=== PATIENT | male | born 1995 | race Caucasian/White ===

== ENCOUNTER 2024-12-18 18:53 | Emergency (ER) | payer OTHER, SELFPAY ==
[2024-12-18 19:01] VITALS: BP 122/70
[2024-12-18 19:59] LABS: % Basophils 0.8 % (0-2); % Immature Granulocytes 0.4 % (0-0.5); % Lymphocytes 6.8 % (20.5-51.1); % Monocytes 5.8 % (1.7-9.3); % Neutrophils 86.2 % (42.2-75.2); Absolute Lymphocytes 0.3 10^3/uL (1.2-3.4); Absolute Monocytes 0.3 10^3/uL (0.1-0.6); Absolute Neutrophils 4.2 10^3/uL (1.4-6.5); Hematocrit 42.4 % (39.0-52.0); Hemoglobin 15.1 g/dL (13.0-18.0); Mean Corp Hgb Conc. 35.6 g/dL (33.0-37.0); Mean Corpuscular Hgb 31.9 pg (27.0-31.0); Mean Corpuscular Volume 89.5 fL (80.0-94.0); Mean Platelet Volume 9.2 fL (7.4-10.4); Nucleated Red Blood Cells % 0 % (-); Platelet Count 152 10^3/uL (130-400); Red Blood Cell Count 4.74 10^6/uL (4.70-6.10); Red Cell Dist. Width 12.2 % (11.5-14.5); White Blood Cell Count 4.8 10^3/uL (4.8-10.8)
[2024-12-18 20:09] LABS: Erythrocyte Sed Rate 4 mm/hour (0-20)
[2024-12-18 20:24] LABS: ALT (SGPT) 118 U/L (0-50); AST (SGOT) 115 U/L (17-59); Albumin 4.1 g/dl (3.5-5.0); Alkaline Phosphatase 64 U/L (38-126); Blood Urea Nitrogen 7 mg/dl (9-20); Calcium 9.4 mg/dl (8.4-10.2); Carbon Dioxide 25 mmol/L (22-30); Chloride 107 mmol/L (98-107); Glucose 153 mg/dl (70-99); Potassium 3.7 mmol/L (3.5-5.1); Sodium 138 mmol/L (135-145); Total Bilirubin 0.5 mg/dl (0.2-1.3); Total Protein 6.6 g/dl (6.3-8.2); eGFR > 60.00
--- NOTE | 2024-12-18 22:03 | ED.SKININJ ---
HPI-Injury
General
Chief Complaint: Bite
Source: patient
Exam Limitations: none
Time Seen by Provider: 12/18/24 19:31
Nursing documentation reviewed up to this point in time: agreed with
History of Present Illness-Injury
Is this injury a work related problem?: No
Is pt an associate of [facility]?: No
Initial Injury comments:
Patient to ED for eval of skin rash to right posterior shoulder. He reports removing a small tick from site a few weeks ago. This past week he noticed rash, developed body aches. He was evaluated at yesterday and diagnosed with suspected lyme
disease. Placed on Doxycycline 100mg bid x 28 days. He has had 3 doses and reports his symptoms are unchanged. Feels that the rash on his shoulder is expanding. To ED accompanied by spouse for eval.
Past History
Past History
ED Past Medical History: None
ED Past Surgical History: None
Review of Systems
Review of Systems
Allergies reviewed?: Yes
All Other Systems: ROS reviewed and negative except as documented in HPI and ROS
Constitutional: Reports fatigue
EENT: Reports no symptoms
Respiratory: Reports no symptoms
Cardiac: Reports no symptoms
ABD/GI: Reports no symptoms
: Reports no symptoms
Musculoskeletal: Reports other (generalized body aches)
Skin: Reports other (EM rash to right posterior shoulder)
Neurological: Reports no symptoms
Psychiatric: Reports no symptoms
Phy Exam
General Physical Exam
General Presentation: mild distress
General age: appears stated age
General Skin: warm and dry
General Habitus: normal
General Mental: alert
Cardiovascular Exam
Cardiovascular Exam: regular rate/rhythm and no edema
Musculoskeletal Exam
Musculoskeletal Exam: full ROM and neuro vasc intact
Skin Exam
Skin Exam: normal color, warm/dry and other (bulls eye rash to left shoulder consistent with lyme presentation)
Psychiatric Exam
Psychiatric Exam: normal mood/affect
Course
Orders/Labs/Results
Orders:
Orders
12/18/24 19:50
CBC/With Diff [Complete Blood Count/With Diff] Urgent
CMP [Comprehensive Metabolic Panel] Urgent
CRP [C-Reactive Protein] Urgent
Lyme Progressive Urgent
Sed Rate [Erythrocyte Sed Rate] Urgent
Abnormal Lab Results
12/18/24
19:50
MCH 31.9 H pg
(27.0-31.0)
Absolute Lymphs (auto) 0.3 L 10^3/uL
(1.2-3.4)
Neutrophils % 86.2 H %
(42.2-75.2)
Lymphocytes % 6.8 L %
(20.5-51.1)
BUN 7 L mg/dl
(9-20)
Glucose 153 H mg/dl
(70-99)
AST 115 H U/L
(17-59)
ALT 118 H U/L
(0-50)
C-Reactive Protein 76.70 H mg/L
(0.0-10.00)
12/18/24 19:50
12/18/24 19:50
Vital Signs
Initial and Last Documented VS:
Initial Vital Signs
Temp Pulse BP Pulse Ox
100.0 F 98 122/70 96
12/18/24 19:01 12/18/24 19:01 12/18/24 19:01 12/18/24 19:01
Last Documented Vital Signs
Temp Pulse BP Pulse Ox
100.0 F 98 122/70 96
12/18/24 19:01 12/18/24 19:01 12/18/24 19:01 12/18/24 19:01
*Critical Care Note
Total Time (30-74mins, 75-104mins- exclusive of procedures): Not Applicable
Update Note
Update Note:
Patient to ED with concern that rash to left posterior shoulder and body aches have not improved despite 3 doses of doxycycline. He remains afebrile here. Labs reviewed. wBC normal. Mild elevation of liver enzymes noted. No abdominal symptoms.
Sed rate normal, CRP elevated. Lyme titer sent (not sent by urgent care). Recommend continuing doxy bid as prescribed and repeating LFT's in 1 week. Close follow up with PCP. Discussed lab results and plan wiht patient and spouse, both are
agreeabl to plan. Instructions given on s/s to return to ED.
ED Attending Note
-
Portions of this chart may have been created with voice recognition software.� Occasional wrong word or��sound alike� substitutions may have occurred due to the inherent limitations of voice recognition software.
Discharge Plan
Departure
Patient Disposition: Home (Routine Discharge)
Date of Disposition: 12/18/24
Time of Disposition: 20:40
Patient with high blood pressure during this ER visit?: No
Condition: Good
Covid-19: Not Applicable
Discharge Problem:
Lyme disease
Instructions: Lyme Disease (DC)
Referrals:
Mart Benitez MD [Family Provider, [facility]]
Activity Restrictions/Additional Instructions:
Continue doxycycline as prescribed. Please have your liver enzymes rechecked in 1 week.
Interventions
Interventions:
*Risk Screen - Suicide Last Done: 12/18/24 19:02
*Neglect/Abuse Screening Last Done: 12/18/24 19:02
*Nursing Disposition Last Done: 12/18/24 21:10
ED-Skin Assessment Last Done: 12/18/24 19:04
Discharge Date and Time
Discharge Date/Time: 12/18/24 21:11
Print Language: IRAQI
[2024-12-19 13:57] LABS: Lyme Antibody Screen, EIA Negative (Negative)
== END 2024-12-18 21:11 | disposition home or self-care (01) ==
LOC: EMR 18:53
PROVIDERS: Nurse Practitioner; EMERGENCY PHYSICIAN Emergency Medicine; FAMILY PHYSICIAN Family Medicine
DX: A69.20 Lyme disease, unspecified (principal); R53.83 Other fatigue
CPT/HCPCS: 99282; 80053; 85025; 85652; 86140; 86618